=== PATIENT | male | born 1985 | race Two or more races ===

== ENCOUNTER 2024-10-20 03:30 | Emergency (ER) | payer OTHER ==
[~2024-10-20] VITALS: Ht 188 cm; Wt 97.5 kg
[2024-10-20] MEDS ORDERED: ESCITALOPRAM OX10 MG PO (03:45)
[2024-10-20] MEDS ORDERED: PROPRANOLOL HCL20 MG PO (03:45)
[2024-10-20] MEDS ORDERED: hydrOXYzine PAMOATE 50 MG CAPSULE PO ONE ×2 (04:18→04:30)
[2024-10-20] MEDS ORDERED: ALPRAzolam 1 MG TABLET PO ONE (04:30)
[2024-10-20] MEDS ORDERED: ALPRAzolam 0.5 MG TABLET PO ONE (04:30)
== END 2024-10-20 04:38 | disposition home or self-care (01) ==
LOC: ER 03:32
DX: F41.0 Panic disorder [episodic paroxysmal anxiety] (principal)